=== PATIENT | female | born 1975 | race Caucasian/White ===

== ENCOUNTER 2021-06-03 22:54 | Emergency (ER) | payer BC ==
[2021-06-04 00:37] LABS: HEMOGLOBIN 10.6 gm/dl (12.3-15.3); RED BLOOD COUNT 4.13 M/UL (4.00-5.10); WHITE BLOOD COUNT 13.8 K/UL (4.5-11.0)
[2021-06-04 01:13] LABS: BUN/CREATININE RATIO 5 (0-10)
[2021-06-04] MEDS ORDERED: OMNICEF 300 MG300 MG PO (02:48)
[2021-06-04] MEDS ORDERED: ZOFRAN ODT 4 MG4 MG SL (02:48)
== END 2021-06-04 03:40 | disposition home or self-care (01) ==
LOC: ER1 22:54
PROVIDERS: Physician Assistant
DX: N12 Tubulo-interstitial nephritis, not specified as acute or chronic (principal); F17.210 Nicotine dependence, cigarettes, uncomplicated; F41.9 Anxiety disorder, unspecified
CPT/HCPCS: 80053; 81001; 84703; 85025; 87077; 87086; 87186; 96374; 99284; J0696; Q9967

== ENCOUNTER → 2022-07-06 | Outpatient (CLI) | payer OTHER ==
[~2022-07-06] MED LIST: OMNICEF 300 MG300 MG PO; ZOFRAN ODT 4 MG4 MG SL
== END ==
LOC: LAB 22:24
DX: Z02.83 Encounter for blood-alcohol and blood-drug test (principal)
CPT/HCPCS: 36415